=== PATIENT | male | born 1995 | race Asian ===

== ENCOUNTER 2021-06-02 | Emergency (ER) | payer SELFPAY ==
[~2021-06-02] VITALS: Ht 182.9 cm; Wt 90.7 kg
[2021-06-02 00:04] VITALS: BP 125/79
[2021-06-02] MEDS ORDERED: LIDOCAINE 1% HCL (LOCAL ANESTH.) INJ 20ML MDV IJ ONE (02:15)
[2021-06-02] MEDS ORDERED: TETANUS-DIPTH-ACEL PERTUSSIS 0.5ML SYR Tdap IM ONE (03:15)
== END 2021-06-02 03:28 | disposition home or self-care (01) ==
LOC: ER 00:05
DX: S51.812A Laceration without foreign body of left forearm, initial encounter (principal); W26.0XXA Contact with knife, initial encounter; Y93.89 Activity, other specified; Y92.89 Other specified places as the place of occurrence of the external cause; Y99.8 Other external cause status
CPT/HCPCS: 12001; 90471; 90715; 99283; J2001